=== PATIENT | female | born 1960 | race Caucasian/White ===

== ENCOUNTER 2017-01-09 06:54 | Day surgery (SDC) | payer BC ==
--- NOTE | 2017-01-01 10:41 | MH ---
cc: MAYTE COLLADO EVAN D. M.D. DATE OF ADMISSION: 01/09/2017 DATE OF 1960 CHIEF COMPLAINT The patient will come for CT-guided right lung biopsy. HISTORY OF PRESENT ILLNESS Ms. Grigsby is a 56-year-old white female with history of COPD, nicotine use, anxiety and depression and abnormal alpha 1 antitrypsin gene. She had a chest x-ray done which was abnormal. She was sent for a CT scan of the chest done at [facility] on December 09. It shows 2.3 cm suspicious mass in the anterior medial right upper lobe concerning for primary lung cancer. She also has emphysematous changes in the lung. PAST MEDICAL HISTORY 1. History of CA of the breast status post bilateral mastectomy and reconstruction 2. History of D&C, 3. Cholecystectomy, 4. Anxiety disorder. MEDICATIONS 1. Lopid 2. Paxil. 3. Xanax. 4. Lortab. ALLERGIES PENICILLIN SOCIAL HISTORY She has 35 year history of smoking 1 1/2 packs a day which she quit one year ago. No alcohol use. FAMILY HISTORY She is , lives with her son. She has three children. She has one brother who has alpha one antitrypsin deficiency. Mother with cancer of the lung and COPD. Father with abdominal aortic aneurysm surgery complications. REVIEW OF SYSTEMS No Fefer or Chills. No night sweats. No hemoptysis. PHYSICAL EXAMINATION GENERAL: Well-built, well-nourished female in no acute distress. VITAL SIGNS: Blood pressure 130/76, heart rate 90, respirations 16, oxygen saturation 96%. HEENT: Pupils are equal and react to light. Oral mucosa, nasal mucosa normal. NECK: Supple. JVP not raised. CHEST: Equal bilaterally, no rhonchi. CARDIOVASCULAR: S1, S2 normal. ABDOMEN: Benign. EXTREMITIES: No edema. IMPRESSION 1. Right upper lobe 2.3 cm density suspicious for malignancy needs biopsy. 2. Dyspnea 3. History of CA of the breast status post bilateral mastectomy and reconstruction 4. Anxiety. 5. Weight loss PLAN I discussed with the patient and her son she will need CT-guided biopsy. I explained to them the procedure and the complications including complication of anesthesia, pneumothorax requiring chest tube, bleeding complication, injury to blood vessel, Lungs, nerves and possibility of nondiagnostic biopsy. They understand well and want to proceed with it. She will be scheduled at [facility] for CT-guided biopsy and the biopsy will be sent for pathology, cultures, AFB and fungal smear. MD ROWAN Schilling/ /11:10 PM /10:32 AM JAY
[~2017-01-09] VITALS: Ht 162.6 cm; Wt 88.0 kg
[2017-01-09] VITALS (8 sets, daily range): BP systolic 125–149; BP diastolic 63–90; PULSE 84–94; RESP 16–20; TEMP 97.6–97.9; O2SAT 88–98
[~2017-01-09 06:54] MED LIST: ALPR0.5T99 PO; DICY1TAB26 PO; LORT7.5T3 PO; METH4PAK PO; OMEP20TA39 PO; SUCR1S PO
[2017-01-09] MEDS ORDERED: ALPR0.5T3 PO (07:43)
[2017-01-09] MEDS ORDERED: ZANT150T2 PO (07:43)
[2017-01-09] MEDS ORDERED: PARO1TAB71 PO (07:43)
[2017-01-09] MEDS ORDERED: HYDR-2376 PO (07:43)
[2017-01-09] MEDS ORDERED: GEMF600T PO (07:43)
[2017-01-09] MEDS ORDERED: SODIUM CHLOR 0.9% 1000 ML IV SCH (07:45)
[2017-01-09] MEDS ORDERED: SODIUM CHLORIDE 5 ML FLUSH PRN IVF (07:45)
[2017-01-09] MEDS ORDERED: SODIUM CHLORIDE 5 ML FLUSH BID IVF SCH (09:00)
[2017-01-09] MEDS ORDERED: LIDOCAINE 1%/EPINEPHrine 1:100,000 SOLN 20 ML VIAL ONE (09:25)
[2017-01-09] MEDS ORDERED: MIDAZOLAM HCL 5 MG/5 ML VIAL ONE (09:58)
[2017-01-09] MEDS ORDERED: fentaNYL CITRATE 250 MCG/5 ML AMP ONE (09:58)
--- NOTE | 2017-01-09 10:37 | PD.RAD ---
Post CT Procedure Prog Note Pre Procedure Diagnosis: (1) Lung mass Post Procedure Diagnosis: (1) Lung mass Procedure Date: Jan 09, 2017 Supervising Radiologist: Vinay Napoles JR Proceduralist/Assist: Ce Mays RT(R)(CT) Anesthesia: Conscious Sedation Plan of Activity Patient to Unit: ROPU Patient Condition: Good See PACS Report for procedural detail/treatment Biopsy Imaging Guidance: CT Side: Right Biopsy Procedure: Lung Specimen: Core Biopsy, Fine Needle Aspirate Findings: specimens for histology and micro sent. Jr. Dony,Vinay Shen MD Jan 09, 2017 10:37
[2017-01-09] MEDS ORDERED: oxyCODONE/ACETAMINOPHEN 5 MG/325 MG TAB PO PRN (11:00)
--- NOTE | 2017-01-09 12:10 | RADRPT ---
EXAM DATE/TIME: 01/09/2017 11:34 [facility] COMPARISON: CT NEEDLE BIOPSY LUNG, RIGHT, January 09, 2017, 10:04. INDICATIONS : Post lung biopsy. MEDICAL HISTORY : None. SURGICAL HISTORY : None. ENCOUNTER: Initial ACUITY: 1 day PAIN SCORE: 10/10 LOCATION: Right chest. FINDINGS: A single frontal expiratory view of the chest was performed. The lungs are symmetrically aerated and clear. No evidence of pneumothorax. Mediastinal structures are in the midline. The cardio-mediastinal contours and bronchopulmonary markings are unremarkable for an expiratory exam . Osseous structures are intact. The patient's known right lung mass is not visible by plain film. CONCLUSION: 1. No pneumothorax identified following CT guided biopsy. Wong Campbell MD on January 09, 2017 at 12:08 Board Certified Radiologist. This report was verified electronically.
--- NOTE | 2017-01-09 12:40 | RADRPT ---
EXAM DATE/TIME: 01/09/2017 10:04 [facility] COMPARISON: No previous studies available for comparison. INDICATIONS : Right lung mass. SEDATION TIME: 30 minutes BIOPSY SITE: Right MEDICATION(S): 1.) 4 mg midazolam (Versed) IV 2.) 200 mcg fentanyl (Sublimaze) IV DEVICE(S): 1.) 20 gauge Temno core biopsy needle MEDICAL HISTORY : Carcinoma, breast. SURGICAL HISTORY : Mastectomy, bilateral. Breast augmentation. ENCOUNTER: Initial ACUITY: 1 day PAIN SCORE: 0/10 LOCATION: Right chest A total of three core specimen(s) and one aspiration were obtained and sent to the laboratory for pat hologic evaluation. PROCEDURE: 1. CT guided lung biopsy. 2. Conscious sedation with continuous EKG and oximetry monitoring. 3. EKG and oximetry remained stable throughout the procedure. Prior to the procedure informed consent was obtained. Any appropriate prior imaging studies were rev iewed. The site was prepped in a sterile fashion. Full sterile technique was used, including cap, mask, juan a rile gloves and gown and a large sterile sheet. Hand hygiene and 2% chlorhexidine and/or betadine/al cohol prep was utilized per protocol for cutaneous antisepsis. The skin and subcutaneous tissues wer e infiltrated with local anesthetic solution. With CT guidance the right upper lobe nodule was localized. Biopsy was performed using the prescribed needle as above. 3 core specimens for histological evaluation and an aspiration for microbiological evaluation were performed. Adequate hemostasis was obtained with compression at the puncture site. Follow-up CT scan reveals no pneumothorax. Conscious sedation was performed with the prescribed dosages and duration as above. The patient paula ated the procedure well and there were no complications. EKG and oximetry remained stable throughout the procedure. The patient was sent to Radiology Outpatient Unit in stable condition. CONCLUSION: Uncomplicated CT guided biopsy of a right upper lobe lung mass. Histological and microbiological samp ling obtained.. Vinay Napoles Jr., MD on January 09, 2017 at 12:35 Board Certified Radiologist. This report was verified electronically.
== END 2017-01-09 15:15 | disposition home or self-care (01) ==
LOC: HRAD 06:54 → HRIP 06:55 → EDSTATUS 07:00 → HRAD 15:15
PROVIDERS: ATTEND Specialist
DX: R91.8 Other nonspecific abnormal finding of lung field (principal); J44.9 Chronic obstructive pulmonary disease, unspecified; F41.9 Anxiety disorder, unspecified; F32.9 Major depressive disorder, single episode, unspecified; Z90.13 Acquired absence of bilateral breasts and nipples; Z87.891 Personal history of nicotine dependence; Z85.3 Personal history of malignant neoplasm of breast; Z88.0 Allergy status to penicillin
CPT/HCPCS: 32405; 71010; 77012; 87015; 87070; 87102; 87116; 87205; 87206; 88305; 88341; 88342; J2250; J3010